=== PATIENT | female | born 1980 | race Caucasian/White ===

== ENCOUNTER 2019-10-31 14:15 | Emergency (ER) | payer OTHER ==
[~2019-10-31] VITALS: Ht 170.2 cm; Wt 81.7 kg
--- NOTE | 2019-10-31 14:47 | NUR ---
PT TO T2 AT THIS TIME, + EXPOSURE TO COVID. PT DENIES FEVER, COUGH. PT PRIMARY COMPLAINT POSSIBLE DISLOCATOIN OF L ELBOW D/T FALL
[2019-10-31] MEDS ORDERED: SODIUM CHLORIDE FLUSH 10ML SYR IVF ONE (15:00)
[2019-10-31] MEDS ORDERED: MORPHINE SULFATE 4 MG/ML, 1ML ONE (15:53)
[2019-10-31] MEDS ORDERED: MORPHINE SULFATE 4 MG/ML, 1ML IVPush ONE (16:00)
[2019-10-31] MEDS ORDERED: PROPOFOL 10 MG/ML, 20ML ONE (16:56)
[2019-10-31] MEDS ORDERED: FENTANYL PF 100 MCG/2ML ONE (17:07)
--- NOTE | 2019-10-31 17:30 | NUR ---
PT TOLERATED BEDSIDE CLOSED REDUCTION WITH PROCEDURAL SEDATION. SEE SEDATION PAPERWORK
[2019-10-31 17:53] VITALS: BP 131/80
--- NOTE | 2019-10-31 19:10 | NUR ---
REPORT RECEIVED FROM KENNETH PURI. PLAN OF CARE DISCUSSED. PATIENT BEING SPLINTED AT THIS TIME, THEN TO BE DISCHARGED
--- NOTE | 2019-10-31 19:49 | NUR ---
Patient given discharge instructions and they have confirmed that they understand the instructions. Patient ambulatory with steady gait.
== END 2019-10-31 19:50 | disposition home or self-care (01) ==
LOC: ED 16:58
DX: S53.125A Posterior dislocation of left ulnohumeral joint, initial encounter (principal); W18.30XA Fall on same level, unspecified, initial encounter; Y93.89 Activity, other specified; Y92.89 Other specified places as the place of occurrence of the external cause; Y99.8 Other external cause status
CPT/HCPCS: 24600; 73070; 73200; 96374; 99285; J2270